=== PATIENT | male | born 1950 | race African-American/Black ===

== ENCOUNTER 2017-06-05 08:22 | Emergency (ER) | payer OTHER ==
[~2017-06-05] VITALS: Ht 180.3 cm; Wt 81.6 kg
[2017-06-05 08:22] VITALS: BP_SYST 157
--- NOTE | 2017-06-05 08:30 | NUR ---
Pt was brought to bed 3 and report was given by Sukhwinder
--- NOTE | 2017-06-05 08:41 | NUR ---
Pt has an abscess to the center of the chest near the left chest, pt states it appeared 2 weeks ago and thought it was a blackhead, popped it the beginning of last week and it started draining a couple days after that. The abscess is swollen with a white hole in the middle with clear drainage, redness around the hole, denies pain. No other injuries/complaints per pt or noted.
--- NOTE | 2017-06-05 09:08 | NUR ---
ER at bedside examining patient.
[2017-06-05] MEDS ORDERED: SULFAMETHOXAZOLE/TRIMETHOPR DS 1 TABLET PO ONE (09:15)
[2017-06-05] MEDS ORDERED: AMOXICILLIN/CLAVULANATE POTASSIUM 875 MG TABLET PO ONE (09:15)
[2017-06-05] MEDS ORDERED: BACITRACIN 1 GM OINT TP ONE (09:15)
--- NOTE | 2017-06-05 09:55 | NUR ---
Patient given written and verbal discharge instructions and verbalizes understanding. ER MD discussed with patient the results and treatment provided. Patient in stable condition. ID arm band removed. Rx of bactrim and augmentin given. Patient educated on pain management and to follow up with PMD. Pain Scale 0. Opportunity for questions provided and answered.
[2017-06-05 10:00] VITALS: BP_SYST 150
== END 2017-06-05 09:55 | disposition home or self-care (01) ==
LOC: SED 08:22
DX: J86.9 Pyothorax without fistula (principal)
CPT/HCPCS: 99284

== ENCOUNTER 2017-06-17 07:54 | Emergency (ER) | payer OTHER ==
[~2017-06-17] VITALS: Ht 180.3 cm; Wt 79.4 kg
[2017-06-17] MEDS ORDERED: NACL 0.9% 1,000 ML IV SCH (08:06)
[2017-06-17 08:09] VITALS: BP_SYST 142
[2017-06-17] MEDS ORDERED: PIPERACILLIN/TAZO 3.38 GM in D5W 50 ML IV ONE (08:15)
[2017-06-17] MEDS ORDERED: VANCOMYCIN HCL 1,000 MG in D5W 250 ML IV ONE (08:15)
[2017-06-17] MEDS ORDERED: KETOROLAC TROMETHAMINE 30 MG VIAL IVP ONE (08:15)
[2017-06-17 08:36] LABS: BASOPHILS # (AUTO) 0.1 K/uL (0.0-0.2); BASOPHILS % (AUTO) 1.6 % (0.0-2.0); EOSINOPHILS # (AUTO) 0.5 K/uL (0.0-0.4); EOSINOPHILS % (AUTO) 6.5 % (0.0-4.0); HEMATOCRIT 41.1 % (36-54); HEMOGLOBIN 13.8 g/dL (14.0-18.0); LYMPHOCYTES # (AUTO) 3.9 K/uL (1.0-5.5); LYMPHOCYTES % (AUTO) 48.6 % (20.5-51.5); MEAN CORPUSCULAR HEMOGLOBIN 31 pg (27-31); MEAN CORPUSCULAR HGB CONC 34 % (32-36); MEAN CORPUSCULAR VOLUME 93 fL (79.0-98.0); MONOCYTES # (AUTO) 0.6 K/uL (0.0-1.0); MONOCYTES % (AUTO) 7.6 % (1.7-9.3); NEUTROPHILS # (AUTO) 2.9 K/uL (1.8-7.7); NEUTROPHILS % (AUTO) 35.7 % (40.0-70.0); PLATELET COUNT (AUTO) 172 K/uL (130-430); RED BLOOD CELL COUNT(AUTO) 4.44 MIL/uL (4.2-6.2); RED CELL DISTRIBUTION WIDTH 11.6 % (9.0-15.0)
[2017-06-17] MEDS ORDERED: PIPERACILLIN/TAZOBACTAM 3.375 GM/VIAL (ZOSYN) IV ONE (08:40)
[2017-06-17 08:41] LABS: CALCIUM 9.1 mg/dL (8.4-11.0); CREATININE 0.97 mg/dL (0.55-1.30); POTASSIUM 4.9 mmol/L (3.5-5.1)
[2017-06-17] MEDS ORDERED: VANCOMYCIN HCL 1000 MG/VIAL IV ONE (08:41)
[2017-06-17 12:43] VITALS: BP_SYST 129
== END 2017-06-17 12:42 | disposition short-term general hospital (02) ==
LOC: SED 07:54
DX: L03.313 Cellulitis of chest wall (principal)
CPT/HCPCS: 36415; 80048; 83605; 85025; 85730; 87040; 96365; 96367; 96375; 99285; J1885; J2543; J3370; J7030; 99284